=== PATIENT | female | born 1945 | race Caucasian/White ===

== ENCOUNTER → 2016-06-17 | Outpatient (CLI) | payer MEDICARE, BC ==
[~2016-06-17] MED LIST: ALLO100T PO; ASPI-482 PO; CYCL1DRO EACHEYE; DENO60DI SQ; LEVO75TA5 PO; LOSA1TAB18 PO; MECL25TA3 PO; ROPI0.5T2 PO; TRIA1CAP3 PO; VERA240C2 PO
--- NOTE | 2016-06-17 12:29 | KCIC ---
PROCEDURE MRI lumbar spine without contrast. HISTORY Low back pain. Fall in March. Left leg pain. TECHNIQUE Sagittal T1, sagittal T2, sagittal STIR, axial T1, and axial T2 sequences are provided. COMPARISON April 01, 2010. FINDINGS Localizing series demonstrates S-shaped curvature of the lower thoracic and lumbar spine. There is also 4 millimeters of retrolisthesis at L2-L3. There is diffuse disc desiccation. There is narrowing of disc height at L1-L2 and L2-L3. There is endplate edema at L2-L3. There is no worrisome marrow lesion, there are a few scattered hemangiomas noted. Conus medullaris is normal in signal intensity and in position. Subcutaneous edema is noted. A few synovial cysts are present, although these extend into the paraspinous musculature, not into the spinal canal. These are present on the left at L4-L5 and L5-S1 and on the right at L2-L3. The numbering system assumes 5 lumbar type vertebral bodies. Findings by individual level are as follows: L1-L2: Disc osteophyte complex is noted with mild left foraminal narrowing. L2-L3: Disc osteophyte complex is noted along with facet hypertrophy. These findings along with the retrolisthesis narrow the thecal sac minimally to 13 millimeters. There is right lateral recess narrowing which is probably moderate. There is high-grade right foraminal narrowing. There is mild left foraminal narrowing. L3-L4: Disc bulge and facet hypertrophy are noted. Midline AP diameter of the thecal sac is 12 millimeters. There is lateral recess narrowing bilaterally which is mild. Foraminal narrowing is mild on the left and moderate on the right. L4-L5: Disc bulge and facet hypertrophy are noted with minimal right foraminal narrowing. L5-S1: Minimal disc bulge and facet hypertrophy are noted without canal or foraminal compromise. In addition to the synovial cyst extending into the paraspinous musculature, there is a synovial cyst extending into the lateral aspect of the left neuroforamen, does not exert any mass effect on the exiting nerve root. 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 Electronically signed by: Frantz De Leon MD (Jun 17, 2016 12:27:52)
== END | disposition home or self-care (01) ==
LOC: KCIC MRI 10:33
PROVIDERS: ATTEND Nurse Practitioner Family
DX: M47.896 Other spondylosis, lumbar region (principal)
CPT/HCPCS: 72148

== ENCOUNTER → 2017-04-30 | Outpatient (CLI) | payer MEDICARE, BC | END | disposition home or self-care (01) | LOC: KCIC MRI 15:14 | DX: S43.492A Other sprain of left shoulder joint, initial encounter (principal); M75.112 Incomplete rotator cuff tear or rupture of left shoulder, not specified as traumatic; M19.012 Primary osteoarthritis, left shoulder; M65.9 Synovitis and tenosynovitis, unspecified; M62.512 Muscle wasting and atrophy, not elsewhere classified, left shoulder; M25.412 Effusion, left shoulder; R60.0 Localized edema; X58.XXXA Exposure to other specified factors, initial encounter; Y93.89 Activity, other specified; Y92.89 Other specified places as the place of occurrence of the external cause; Y99.8 Other external cause status | CPT/HCPCS: 73221 ==